=== PATIENT | female | born 1940 | race Caucasian/White ===

== ENCOUNTER 2018-08-02 10:57 | Observation (INO) ==
--- NOTE | 2018-08-02 11:37 | ED ---
HPI General Chief Complaint: Altered Mental Status Stated Complaint: AMS Time Seen by Provider: 08/02/18 11:26 Source: patient, family and EMS Mode of arrival: EMS Limitations: no limitations History of Present Illness HPI Narrative: 77-year-old female patient currently [facility] a [facility] presents to the ER today brought in by her family because she had lost her balance and fell hitting her head. It is unclear whether she had a loss of consciousness or not. She is currently complaining of left knee pain. She is a bit difficult to understand because she does not have her dentures in but her niece was able to understand her well and translates her answers to me. She denies any chest pains or abdominal pains. Modifying Factors: None Associated Signs & Symptoms: Loss of balance and fall, head injury, left knee injury Risk Factors: Elderly Related Data Home Medications Medication Instructions Recorded Confirmed albuterol sulfate [Ventolin HFA] 2 puff INHALATION Q4-6H PRN 08/02/18 08/02/18 alendronate 10 mg PO DAILY 08/02/18 08/02/18 budesonide-formoterol [Symbicort] 2 puff INHALATION BID 08/02/18 08/02/18 buspirone 10 mg PO BID 08/02/18 08/02/18 divalproex 250 mg PO BID 08/02/18 08/02/18 omeprazole 20 mg PO DAILY 08/02/18 08/02/18 pravastatin 40 mg PO DAILY 08/02/18 08/02/18 quetiapine 50 mg PO BID 08/02/18 08/02/18 Allergies Allergy/AdvReac Type Severity Reaction Status Date / Time No Known Allergies Allergy Verified 08/02/18 11:29 Review of Systems ROS: all other systems reviewed are negative [facility] Social History Social History Substance History: No History of Abuse Second Hand Smoke Exposure: No Smoking Status: Never smoker How Often Do You Have a Drink Containing Alcohol: Never Recent Travel in [facility] within the Last 8 Weeks: No Recent Out of Country Travel within the Last 8 Weeks: No Exam Narrative Exam Narrative: GENERAL: Pleasant well-developed elderly white female patient currently in mild distress. Awake and alert. SKIN: Focused skin assessment warm/dry. HEAD: Atraumatic. Normocephalic. EYES: Pupils equal and round. No scleral icterus. No injection or drainage. ENT: No nasal bleeding or discharge. Mucous membranes pink and moist. NECK: Trachea midline. No JVD. C-collar in place. CARDIOVASCULAR: Regular rate and rhythm. No murmur appreciated. RESPIRATORY: No accessory muscle use. Clear to auscultation. Breath sounds equal bilaterally. GASTROINTESTINAL: Abdomen soft, non-tender, nondistended. Hepatic and splenic margins not palpable. MUSCULOSKELETAL: No obvious deformities. No clubbing. No cyanosis. No edema. Pelvis is stable and nontender to palpation. There is mild tenderness palpation of the left knee. Nontender range of motion however. NEUROLOGICAL: Awake and alert. No obvious cranial nerve deficits. Motor grossly within normal limits. Normal speech. PSYCHIATRIC: Appropriate mood and affect; insight and judgment normal. Course Initial Documented Vital Signs Temperature 100 F H 08/02/18 11:28 Pulse Rate 116 H 08/02/18 11:28 Respiratory Rate 20 08/02/18 11:28 Blood Pressure 171/77 H 08/02/18 11:28 Pulse Oximetry 97 08/02/18 11:28 Last Documented Vital Signs Temperature 100 F H 08/02/18 11:28 Pulse Rate 113 H 08/02/18 11:29 Respiratory Rate 20 08/02/18 11:28 Blood Pressure 171/77 H 08/02/18 11:28 Pulse Oximetry 96 08/02/18 11:29 Medical Decision Making MDM Narrative Medical decision making narrative: EKG shows a sinus tachycardia. She has a low -grade fever of uncertain etiology. There is no significant elevation in white blood cell count. CAT scan of the brain did not show any signs of acute intracranial processes. Lab work did show a mild elevation of BUN and lactate, questionable secondary to dehydration. IV fluids were given in the ER. At this point, my plan would be to admit the patient for observation. Case is discussed with family practice resident service for admission. Medical Screen Exam Complete: Yes Emergency Medical Condition: Yes Differential Diagnosis Differential Diagnosis: Contusions versus fractures versus intracranial injuries Lab Data Lab results reviewed: Yes I reviewed the patient's lab results. Result diagrams: 08/02/18 11:35 08/02/18 11:35 Lab Results 08/02/18 08/02/18 08/02/18 Range/Units 11:35 11:35 11:35 WBC 7.8 (4.0-11.0) th/mm3 RBC 4.90 (4.00-5.30) mil/mm3 Hgb 12.2 (11.6-15.3) gm/dL Hct 36.9 (35.0-46.0) % MCV 75.3 L (80.0-100.0) fL MCH 24.9 L (27.0-34.0) pg MCHC 33.1 (32.0-36.0) % RDW 14.8 (11.6-17.2) % Plt Count 146 L (150-450) th/mm3 MPV 9.2 (7.0-11.0) fL Neut % (Auto) 80.6 H (16.0-70.0) % Lymph % (Auto) 9.3 (9.0-44.0) % [place] % (Auto) 9.0 H (0.0-8.0) % Eos % (Auto) 0.7 (0.0-4.0) % Baso % (Auto) 0.4 (0.0-2.0) % Neut # (Auto) 6.3 (1.8-7.7) th/mm3 Lymph # (Auto) 0.7 L (1.0-4.8) th/mm3 [place] # (Auto) 0.7 (0.0-0.9) th/mm3 Eos # (Auto) 0.1 (0.0-0.4) th/mm3 Baso # (Auto) 0.0 (0.0-0.2) th/mm3 WBC Differential . Differential Comment Auto diff final Sodium 142 (136-145) meq/L Potassium 4.2 (3.5-5.1) meq/L Chloride 106 (98-107) meq/L Carbon Dioxide 27.7 (21.0-32.0) meq/L Anion Gap 8 (5-15) meq/L BUN 27 H (7-18) mg/dL Creatinine 0.92 (0.50-1.00) mg/dL Estimated GFR 59 L (>89) mL/min POC Glucose (68-110) mg/dl Random Glucose 86 (74-106) mg/dL Lactic Acid 2.7 H (0.4-2.0) mmol/L Calcium 8.7 (8.5-10.1) mg/dL Magnesium 1.5 (1.5-2.5) mg/dL Total Bilirubin 0.6 (0.2-1.0) mg/dL AST 23 (15-37) U/L ALT 15 (10-53) U/L Alkaline Phosphatase 51 (45-117) U/L Total Protein 7.7 (6.4-8.2) g/dL Albumin 3.5 (3.4-5.0) g/dL Urine Color (Yellw/Straw) Urine Clarity (Clear) Urine pH (5.0-8.5) Ur Specific [place] (1.002-1.035) Urine Protein (Neg-Trace) mg/dL Urine Glucose (UA) (Negative) mg/dL Urine Ketones (Negative) mg/dL Urine Occult Blood (Negative) Urine Nitrate (Negative) Urine Bilirubin (Negative) Urine Urobilinogen (Less than 2) mg/dL Ur Leukocyte Esterase (Negative) Urine RBC (0-3) /hpf Urine WBC (0-5) /hpf Ur Squamous Epith Cells (0-5) /hpf Urine Mucus (Occasional) /lpf Micro UA Comment Ur Microscopic Review Urine Culture Comments 08/02/18 08/02/18 Range/Units 11:45 12:31 WBC (4.0-11.0) th/mm3 RBC (4.00-5.30) mil/mm3 Hgb (11.6-15.3) gm/dL Hct (35.0-46.0) % MCV (80.0-100.0) fL MCH (27.0-34.0) pg MCHC (32.0-36.0) % RDW (11.6-17.2) % Plt Count (150-450) th/mm3 MPV (7.0-11.0) fL Neut % (Auto) (16.0-70.0) % Lymph % (Auto) (9.0-44.0) % [place] % (Auto) (0.0-8.0) % Eos % (Auto) (0.0-4.0) % Baso % (Auto) (0.0-2.0) % Neut # (Auto) (1.8-7.7) th/mm3 Lymph # (Auto) (1.0-4.8) th/mm3 [place] # (Auto) (0.0-0.9) th/mm3 Eos # (Auto) (0.0-0.4) th/mm3 Baso # (Auto) (0.0-0.2) th/mm3 WBC Differential Differential Comment Sodium (136-145) meq/L Potassium (3.5-5.1) meq/L Chloride (98-107) meq/L Carbon Dioxide (21.0-32.0) meq/L Anion Gap (5-15) meq/L BUN (7-18) mg/dL Creatinine (0.50-1.00) mg/dL Estimated GFR (>89) mL/min POC Glucose 81 (68-110) mg/dl Random Glucose (74-106) mg/dL Lactic Acid (0.4-2.0) mmol/L Calcium (8.5-10.1) mg/dL Magnesium (1.5-2.5) mg/dL Total Bilirubin (0.2-1.0) mg/dL AST (15-37) U/L ALT (10-53) U/L Alkaline Phosphatase (45-117) U/L Total Protein (6.4-8.2) g/dL Albumin (3.4-5.0) g/dL Urine Color Straw (Yellw/Straw) Urine Clarity Clear (Clear) Urine pH 8.0 (5.0-8.5) Ur Specific [place] 1.009 (1.002-1.035) Urine Protein Negative (Neg-Trace) mg/dL Urine Glucose (UA) Negative (Negative) mg/dL Urine Ketones Negative (Negative) mg/dL Urine Occult Blood Small H (Negative) Urine Nitrate Negative (Negative) Urine Bilirubin Negative (Negative) Urine Urobilinogen Less than 2 (Less than 2) mg/dL Ur Leukocyte Esterase Negative (Negative) Urine RBC 1 (0-3) /hpf Urine WBC Less than 1 (0-5) /hpf Ur Squamous Epith Cells 1 (0-5) /hpf Urine Mucus Few H (Occasional) /lpf Micro UA Comment Culture not ind Ur Microscopic Review Not Reportable Urine Culture Comments Culture not ind Imaging Data Attestation: I personally reviewed and interpreted this imaging study as follows : Radiologist's impression: Cervical Spine CT 08/02/18 11:29 CONCLUSION: Prominent lordotic accentuation. Degenerative changes. No definite acute bony injury. Chest X-Ray 08/02/18 11:29 CONCLUSION: 1. Senescent changes with mild elevation of the right hemidiaphragm. 2. Otherwise, no acute abnormality. Head CT 08/02/18 11:29 CONCLUSION: Negative CT Head non contrast. . Hand X-Ray 08/02/18 11:37 CONCLUSION: No evidence of recent bony injury. Advanced arthropathy of the first carpometacarpal articulation. Knee X-Ray 08/02/18 11:37 CONCLUSION: No evidence of recent bony injury. Pelvis X-Ray 08/02/18 11:37 CONCLUSION: No evidence of acute bony injury. ECG Data Attestation: I personally reviewed and interpreted this ECG as follows: Interpretation: EKG shows sinus tachycardia at a rate of 115 bpm. No signs of acute ST elevations or depressions. Discharge Plan Discharge Disposition Patient Disposition: 30 Still Patient Discharge Condition Condition: Stable Discharge Details Anticipated Discharge Date: 08/02/18 Diagnosis: Altered mental status Physicians Team ED Provider: Renetta Brown Primary Care Provider: UNKNOWN, Attending Provider: Anthony Granger Status ED Status: Admitted Observation Patient
[2018-08-02 11:56] LABS: Baso % (Auto) 0.4 % (0.0-2.0); Eos # (Auto) 0.1 th/mm3 (0.0-0.4); Eos % (Auto) 0.7 % (0.0-4.0); Hematocrit 36.9 % (35.0-46.0); Hemoglobin 12.2 gm/dL (11.6-15.3); Lymph # (Auto) 0.7 th/mm3 (1.0-4.8); Lymph % (Auto) 9.3 % (9.0-44.0); Mean Corpuscular HGB Conc 33.1 % (32.0-36.0); Mean Corpuscular Hemoglobin 24.9 pg (27.0-34.0); Mean Corpuscular Volume 75.3 fL (80.0-100.0); Mean Platelet Volume 9.2 fL (7.0-11.0); Mono # (Auto) 0.7 th/mm3 (0.0-0.9); Neut # (Auto) 6.3 th/mm3 (1.8-7.7); Neut % (Auto) 80.6 % (16.0-70.0); Platelet Count 146 th/mm3 (150-450); Red Cell Distribution Width 14.8 % (11.6-17.2); White Blood Count 7.8 th/mm3 (4.0-11.0)
[2018-08-02 12:22] LABS: Albumin 3.5 g/dL (3.4-5.0); Anion Gap 8 meq/L (5-15); Blood Urea Nitrogen 27 mg/dL (7-18); Calcium 8.7 mg/dL (8.5-10.1); Carbon Dioxide 27.7 meq/L (21.0-32.0); Chloride 106 meq/L (98-107); Glomerular Filtration Rate 59 mL/min (>89); Glucose,Random 86 mg/dL (74-106); Magnesium 1.5 mg/dL (1.5-2.5); Potassium 4.2 meq/L (3.5-5.1); Sodium 142 meq/L (136-145)
[2018-08-02 12:23] LABS: Aspartate Aminotransferase 23 U/L (15-37)
[2018-08-02 12:27] LABS: Alanine Aminotransferase 15 U/L (10-53); Alkaline Phosphatase 51 U/L (45-117); Total Protein 7.7 g/dL (6.4-8.2)
--- NOTE | 2018-08-02 12:34 | XR ---
EXAM DATE: 08/02/2018 12:29 PM EST AGE/SEX: 77 years / Female INDICATIONS: Shortness of breath after fall. CLINICAL DATA: This is the patient's initial encounter. Patient reports that signs and symptoms have been present for 1 day and indicates a pain score of Nonresponsive. MEDICAL/SURGICAL HISTORY: Non-responsive. Non-responsive. COMPARISON: . FINDINGS: Diffuse interstitial prominence. Mild elevation the right hemidiaphragm. No significant focal parench ymal abnormality. Cardiomediastinal contours are within normal limits. Osseous structures appear qiana sly intact. CONCLUSION: 1. Senescent changes with mild elevation of the right hemidiaphragm. 2. Otherwise, no acute abnormality. Electronically signed by: Adeel Lundberg MD 08/02/2018 12:33 PM EST
--- NOTE | 2018-08-02 12:43 | XR ---
EXAM DATE: 08/02/2018 12:30 PM EST AGE/SEX: 77 years / Female INDICATIONS: Pain and bruising after fall. CLINICAL DATA: This is the patient's initial encounter. Patient reports that signs and symptoms have been present for 1 day and indicates a pain score of Nonresponsive. MEDICAL/SURGICAL HISTORY: Non-responsive. Non-responsive. COMPARISON: No prior exams available for comparison. FINDINGS: Bony structures are intact and in normal alignment. Osseous density is normal. Moderate to severe arthropathy is identified at the base of the first metacarpal at the carpometacarp al articulation. Soft tissues are unremarkable. No radiopaque foreign bodies seen. CONCLUSION: No evidence of recent bony injury. Advanced arthropathy of the first carpometacarpal articulation. Electronically signed by: Mushtaq Chambers MD 08/02/2018 12:41 PM EST
--- NOTE | 2018-08-02 12:44 | XR ---
EXAM DATE: 08/02/2018 12:28 PM EST AGE/SEX: 77 years / Female INDICATIONS: Pain after fall. CLINICAL DATA: This is the patient's initial encounter. Patient reports that signs and symptoms have been present for 1 day and indicates a pain score of Nonresponsive. MEDICAL/SURGICAL HISTORY: Non-responsive. Non-responsive. COMPARISON: No prior exams available for comparison. FINDINGS: Examination of the pelvis demonstrates no evidence of fracture or dislocation. Bony mineralization i s normal. There is no widening of the sacroiliac joints. No foreign body is identified. CONCLUSION: No evidence of acute bony injury. Electronically signed by: Mushtaq Chambers MD 08/02/2018 12:42 PM EST
--- NOTE | 2018-08-02 12:45 | XR ---
EXAM DATE: 08/02/2018 12:31 PM EST AGE/SEX: 77 years / Female INDICATIONS: Left knee pain after fall. CLINICAL DATA: This is the patient's initial encounter. Patient reports that signs and symptoms have been present for 1 day and indicates a pain score of Nonresponsive. MEDICAL/SURGICAL HISTORY: Non-responsive. Non-responsive. COMPARISON: No prior exams available for comparison. FINDINGS: Bony structures are intact and in normal alignment. Joints are intact without dislocation or signifi cant arthropathy. Osseous density is normal. Soft tissues are unremarkable. No radiopaque foreign bodies seen. CONCLUSION: No evidence of recent bony injury. Electronically signed by: Mushtaq Chambers MD 08/02/2018 12:43 PM EST
[2018-08-02 12:47] LABS: Bilirubin,Urine Negative (Negative); Clarity,Urine Clear (Clear); Color,Urine Straw (Yellw/Straw); Glucose,Urine (UA) Negative (Negative); Leukocyte Esterase,Urine Negative (Negative); Mucus,Urine Few /lpf (Occasional); Nitrite,Urine Negative (Negative); Specific Gravity,Urine 1.009 (1.002-1.035); Squamous Epithelial Cell,Urine 1 /hpf (0-5)
--- NOTE | 2018-08-02 13:08 | CT ---
EXAM DATE: 08/02/2018 1:05 PM EST AGE/SEX: 77 years / Female INDICATIONS: Fell hit head today, questionable loss of consciousness CLINICAL DATA: This is the patient's initial encounter. Patient reports that signs and symptoms have been present for 1 day and indicates a pain score of 0/10. MEDICAL/SURGICAL HISTORY: Gastroesophageal reflux disease. None. RADIATION DOSE: 66.34 CTDI (mGy) COMPARISON: No prior exams available for comparison. TECHNIQUE: CT of the head without contrast. Using automated exposure control and adjustment of the mA and/or kV according to patient size, radiation dose was kept as low as reasonably achievable to ob tain optimal diagnostic quality images. DICOM format image data is available electronically for revi ew and comparison. FINDINGS: Cerebrum: The ventricles are normal for age. No evidence of midline shift, mass lesion, hemorrhage or acute infarction. No extraaxial fluid collections are seen. Posterior Fossa: The cerebellum and brainstem are intact. The 4th ventricle is midline. The cerebe llopontine angle is unremarkable. Extracranial: The visualized portion of the orbits is intact. Skull: The calvaria is intact. No evidence of skull fracture. CONCLUSION: Negative CT Head non contrast. . Electronically signed by: Brayan Avila MD 08/02/2018 1:07 PM EST
--- NOTE | 2018-08-02 13:12 | CT ---
EXAM DATE: 08/02/2018 1:04 PM EST AGE/SEX: 77 years / Female INDICATIONS: Fall hit head today, questionable loss of consciousness CLINICAL DATA: This is the patient's initial encounter. Patient reports that signs and symptoms have been present for 1 day and indicates a pain score of 6/10. MEDICAL/SURGICAL HISTORY: Gastroesophageal reflux disease. None. RADIATION DOSE: 19.34 CTDI (mGy) COMPARISON: . TECHNIQUE: Contiguous axial images were obtained using helical multirow detector technique. The vol umetric data was post-processed with multiplanar reconstruction in oblique axial, sagittal, and coron al planes. Using automated exposure control and adjustment of the mA and/or kV according to patient s ize, radiation dose was kept as low as reasonably achievable to obtain optimal diagnostic quality cheng ges. DICOM format image data is available electronically for review and comparison. FINDINGS: Prominent lordotic accentuation and mild right convex scoliotic curvature. There is no evidence of ce rvical spine fracture. Degenerative changes are present throughout with disc space narrowing througho ut and small endplate osteophytes present. Mild arthritic changes in the posterior facet joints. Ther e is no evidence of paraspinal hematoma. CONCLUSION: Prominent lordotic accentuation. Degenerative changes. No definite acute bony injury. Electronically signed by: Brayan Avila MD 08/02/2018 1:11 PM EST
[2018-08-02] MEDS ORDERED: Sodium Chlor 0.9% Inj 500 ML IV.SIG SCH (14:00)
--- NOTE | 2018-08-02 14:09 | P.HPFP ---
History of Present Illness Primary Care Physician: UNKNOWN Chief Complaint: knee pain History of Present Illness: 77 year old female PMH asthma, GERD, bipolar who presents after a fall. Patient was home with family for holiday. Usually . Moaning in pain and family went to see what was wrong. She told family she fell into the wall and hit head. She states she blacked out. Patient was more disorientated and unbalanced than usual according to family members. She said at the time of the fall she had increased heart rate and chest pain. Later she fell off toilet. Family called EMS. Had no issue with balance before the falls. Currently her she only complains of L knee pain and some pain of left lower abdomen where she fell. According to family, patient mentally delayed at baseline and low pain tolerance. Since in the ED, family states she is back to baseline and no longer disoriented. Patient states she was recently started on a pain medication (no pain medication listed on the ones she brought). She states she takes her medications daily. No urinary or bowel incontinence. No seizures or history of seizures. Increased urination. No pain with urination and no foul ordor. Some congestion but no shortness of breath. Uses an inhaler daily. No numbness or tingling or weakness. Denies any changes in vision. Patient has had a normal appetite eating and drinking well. PMH: asthma (albuterol PRN and Symbicort BID) Gerd (omeprazole 20 mg) bipolar (buspirone 10 BID, quetiapine 50 BID, divalproex 250 BID) Meds: also alendronate 10mg and pravastatin 40mg SH: L shoulder FH: mom defibrillator and pacemaker, brothers MIs Allergies: none social: never smoker, no alcohol, no drug use. Lives in [facility] in [place] for 11 years. At home does not require a walker or cane to ambulate. - Diagnosis (1) Syncope (2) Left knee pain (3) Left wrist pain (4) Bipolar 1 disorder (5) Asthma (6) GERD (gastroesophageal reflux disease) (7) Nutrition, metabolism, and development symptoms Review of Systems Constitutional: Denies chills, Denies fever(s) Eyes: Denies change in vision Ears, Nose, Mouth, and Throat: Denies dizziness, Denies headache(s) Cardiovascular: Reports chest pain, Reports rapid, pounding, or irregular heartbeat Respiratory: Denies shortness of breath, Denies wheezing Gastrointestinal: Denies nausea, Denies vomiting Genitourinary: Reports urinary urgency, Denies painful urination Musculoskeletal: Denies back pain Comments: left knee pain Skin/Breast: Denies sores Neurologic: Denies headache(s), Denies memory loss, Denies tingling/numbness/ burning sensations, Denies weakness Psychiatric: Denies memory loss Endocrine: Denies excessive sweating, Denies increased thirst Hematologic/Lymphatic: Denies easy bleeding Allergic/Immunologic: Denies hives PMFSH - History History Provided By: Patient - Medical History Medical History: Medical History (Last Reviewed 08/02/18 @ 12:25 by Hyun Michael) Bipolar 1 disorder GERD (gastroesophageal reflux disease) Surgical history unknown - Tobacco History Second Hand Smoke Exposure: No Smoking Status: Never smoker - Alcohol History How Often Do You Have a Drink Containing Alcohol: Never - Substance Use History Substance History: No History of Abuse - Travel History Recent Travel in the [place] Within the Last 8 Weeks: No Recent Travel Out of the Country Within the Last 8 Weeks: No - Immunization History Tetanus Immunization: >5 Years Medications and Allergies Active Medications: Active Medications Sodium Chloride (Ns Inj) 500 mls @ 1,000 mls/hr IV.SIG BOLUS CLARA Stop: 08/02/18 14:29 Allergies Allergy/AdvReac Type Severity Reaction Status Date / Time No Known Allergies Allergy Verified 08/02/18 11:29 Home Medications Medication Instructions Recorded Confirmed Type albuterol sulfate [Ventolin HFA] 2 puff INHALATION Q4-6H PRN 08/02/18 08/02/18 History alendronate 10 mg PO DAILY 08/02/18 08/02/18 History budesonide-formoterol [Symbicort] 2 puff INHALATION BID 08/02/18 08/02/18 History buspirone 10 mg PO BID 08/02/18 08/02/18 History divalproex 250 mg PO BID 08/02/18 08/02/18 History omeprazole 20 mg PO DAILY 08/02/18 08/02/18 History pravastatin 40 mg PO DAILY 08/02/18 08/02/18 History quetiapine 50 mg PO BID 08/02/18 08/02/18 History Exam Vital signs: Vital Signs 08/02/18 11:28 08/02/18 11:29 Temperature 100 F H Pulse Rate 116 H 113 H Respiratory Rate 20 Blood Pressure 171/77 H Pulse Oximetry 97 96 Intake & Output 08/01/18 08/02/18 08/02/18 18:59 06:59 18:59 Output Total 400 / 400 Balance -400 / -400 Weight 200 kg Output: Urine 400 / 400 Other: # Voids 1 Narrative: GENERAL: SKIN: Warm and dry. HEAD: Atraumatic. Normocephalic. EYES: Pupils equal and round. No scleral icterus. No injection or drainage. ENT: No nasal bleeding or discharge. Mucous membranes pink and moist. NECK: Trachea midline. No JVD. CARDIOVASCULAR: Regular rate and rhythm. RESPIRATORY: No accessory muscle use. Clear to auscultation. Breath sounds equal bilaterally. GASTROINTESTINAL: Abdomen soft, nondistended. Mild tenderness to palpation of LLQ. Hepatic and splenic margins not palpable. MUSCULOSKELETAL: Extremities without clubbing, cyanosis, or edema. No obvious deformities. Some mild left knee swelling of medial joint line. Bruising of L wrist. Tenderness to palpation of left knee and decreased ROM; No tenderness of spine. No CVA tenderness NEUROLOGICAL: Awake and alert. No obvious cranial nerve deficits. Motor grossly within normal limits. Five out of 5 muscle strength in the arms and legs. Normal speech. PSYCHIATRIC: Appropriate mood and affect; insight and judgment normal. Results - Labs Result diagrams: 08/02/18 11:35 08/02/18 11:35 Abnormal lab results 08/02/18 08/02/18 08/02/18 Range/Units 11:35 11:35 11:35 MCV 75.3 L (80.0-100.0) fL MCH 24.9 L (27.0-34.0) pg Plt Count 146 L (150-450) th/mm3 Neut % (Auto) 80.6 H (16.0-70.0) % [place] % (Auto) 9.0 H (0.0-8.0) % Lymph # (Auto) 0.7 L (1.0-4.8) th/mm3 BUN 27 H (7-18) mg/dL Estimated GFR 59 L (>89) mL/min Lactic Acid 2.7 H (0.4-2.0) mmol/L Urine Occult Blood (Negative) Urine Mucus (Occasional) /lpf 08/02/18 Range/Units 12:31 MCV (80.0-100.0) fL MCH (27.0-34.0) pg Plt Count (150-450) th/mm3 Neut % (Auto) (16.0-70.0) % [place] % (Auto) (0.0-8.0) % Lymph # (Auto) (1.0-4.8) th/mm3 BUN (7-18) mg/dL Estimated GFR (>89) mL/min Lactic Acid (0.4-2.0) mmol/L Urine Occult Blood Small H (Negative) Urine Mucus Few H (Occasional) /lpf Short CBC 08/02/18 Range/Units 11:35 WBC 7.8 (4.0-11.0) th/mm3 Hgb 12.2 (11.6-15.3) gm/dL Hct 36.9 (35.0-46.0) % Plt Count 146 L (150-450) th/mm3 BMP 08/02/18 11:35 Sodium 142 Potassium 4.2 Chloride 106 Carbon Dioxide 27.7 BUN 27 H Creatinine 0.92 Calcium 8.7 Liver Function 08/02/18 Range/Units 11:35 Total Bilirubin 0.6 (0.2-1.0) mg/dL AST 23 (15-37) U/L ALT 15 (10-53) U/L Alkaline Phosphatase 51 (45-117) U/L Albumin 3.5 (3.4-5.0) g/dL Urine 08/02/18 Range/Units 12:31 Urine Color Straw (Yellw/Straw) Urine Clarity Clear (Clear) Urine pH 8.0 (5.0-8.5) Ur Specific [place] 1.009 (1.002-1.035) Urine Protein Negative (Neg-Trace) mg/dL Urine Glucose (UA) Negative (Negative) mg/dL - Imaging Impressions Cervical Spine CT 08/02/18 11:29 CONCLUSION: Prominent lordotic accentuation. Degenerative changes. No definite acute bony injury. Chest X-Ray 08/02/18 11:29 CONCLUSION: 1. Senescent changes with mild elevation of the right hemidiaphragm. 2. Otherwise, no acute abnormality. Head CT 08/02/18 11:29 CONCLUSION: Negative CT Head non contrast. . Hand X-Ray 08/02/18 11:37 CONCLUSION: No evidence of recent bony injury. Advanced arthropathy of the first carpometacarpal articulation. Knee X-Ray 08/02/18 11:37 CONCLUSION: No evidence of recent bony injury. Pelvis X-Ray 08/02/18 11:37 CONCLUSION: No evidence of acute bony injury. Caprini VTE Risk Assessment Caprini Risk Assessment Model: Point Value = 1 Point Value = 2 Point Value = 3 Point Value = 5 Age 41-60 Minor surgery BMI > 25 kg/m2 Swollen legs Varicose veins or History of unexplained or recurrent spontaneous Oral contraceptives or hormone replacement Sepsis (< 1 month) Serious lung disease, including pneumonia (< 1 month) Abnormal pulmonary function Acute myocardial infarction Congestive heart failure (< 1 month) History of inflammatory bowel disease Medical patient at bed rest Age 61-74 Arthroscopic surgery Major open surgery (> 45 min) Laparoscopic surgery (> 45 min) Malignancy Confined to bed (> 72 hours) Immobilizing plaster cast Central venous access Age >= 75 History of VTE Family history of VTE Factor V Leiden Prothrombin [id number] Lupus anticoagulant Anticardiolipin antibodies Elevated serum homocysteine Heparin-induced thrombocytopenia Other congenital or acquired thrombophilia Stroke (< 1 month) Elective arthroplasty Hip, pelvis, or leg fracture Acute spinal cord injury (< 1 month) Prophylaxis Regimen: Total Risk Factor Score Risk Level Prophylaxis Regimen 0-1 Low Early ambulation 2 Moderate Order ONE of the following: *Sequential Compression Device (SCD) *Heparin 5000 units SQ BID 3-4 Higher Order ONE of the following medications: *Heparin 5000 units SQ TID *Enoxaparin/Lovenox 40 mg SQ daily (WT < 150 kg, CrCl > 30 mL/min) *Enoxaparin/Lovenox 30 mg SQ daily (WT < 150 kg, CrCl > 10-29 mL/min) *Enoxaparin/Lovenox 30 mg SQ BID (WT < 150 kg, CrCl > 30 mL/min) AND/OR *Sequential Compression Device (SCD) 5 or more Highest Order ONE of the following medications: *Heparin 5000 units SQ TID (Preferred with Epidurals) *Enoxaparin/Lovenox 40 mg SQ daily (WT < 150 kg, CrCl > 30 mL/min) *Enoxaparin/Lovenox 30 mg SQ daily (WT < 150 kg, CrCl > 10-29 mL/min) *Enoxaparin/Lovenox 30 mg SQ BID (WT < 150 kg, CrCl > 30 mL/min) AND *Sequential Compression Device (SCD) Assessment and Plan - Assessment (1) Syncope Code(s): R55 - Syncope and collapse Status: Acute Plan: 77-year-old female past medical history of asthma, bipolar, GERD presents the ED after a fall. According to family members she was more disoriented and on balance before falling. Patient stated she hit her head and lost consciousness. She remembers having chest pain and palpitations. Later patient also fell off of the toilet. Transported by EMS. On arrival to the ED temperature was 100 degrees, heart rate 116, blood pressure 171/77. WBC within normal limits. Lactic acid elevated at 2.7 and BUN elevated at 27. Glucose 80. DDX A. fib, thyroid, hypoglycemia, metabolic, UTI, poor balance. UA was normal. CT head was negative for any abnormalities. Cervical spine CT showed degenerative changes. X-rays of left hand, left knee, and pelvis showed no evidence of fracture. Patient was given 500 cc bolus in the ED Admit for observation Blood cultures pending Trend lactic acid -TSH Bladder scan (possible vasovagal cause with strain) -Carotid doppler -Echo 2D Normal saline 100 mL/h -PT and OT (2) Left knee pain Code(s): M25.562 - Pain in left knee Status: Acute Plan: X-ray: no evidence of bony injury -Pain: Tylenol 650 every 4 as needed (3) Left wrist pain Code(s): M25.532 - Pain in left wrist Status: Acute (4) Bipolar 1 disorder Code(s): F31.9 - Bipolar disorder, unspecified Status: Acute Plan: Continue on home meds -buspirone 10 BID, quetiapine 50 BID, divalproex 250 BID) (5) Asthma Code(s): J45.909 - Unspecified asthma, uncomplicated Status: Acute Plan: Continue on home meds -albuterol PRN and Symbicort BID (6) GERD (gastroesophageal reflux disease) Code(s): K21.9 - Gastro-esophageal reflux disease without esophagitis Status: Acute Plan: Continue on home meds -omeprazole 20 mg (7) Nutrition, metabolism, and development symptoms Code(s): R63.8 - Other symptoms and signs concerning food and fluid intake Status: Acute Plan: Diet: Regular Fluids: 100 normal saline per hour Electrolytes: Monitor and replete DVT prophylaxis: SCDs
[2018-08-02] MEDS ORDERED: Acetaminophen 325 MG Tablet PO PRN (14:25)
[2018-08-02] MEDS ORDERED: Bisacodyl 10 MG Supp RECTAL PRN (14:25)
[2018-08-02] MEDS: Sod Chloride 0.9% Inj 1,000 ML IV.CONT SCH (14:57)
--- NOTE | 2018-08-02 15:47 | P.HPFP ---
History of Present Illness Primary Care Physician: UNKNOWN <Anthony Granger R - 08/03/18 13:54> UNKNOWN <Maria Del Rosario Wilson C - 08/02/18 15:47> Chief Complaint: knee pain <Maria Del Rosario Wilson C - 08/02/18 15:47> History of Present Illness: 77 year old female PMH asthma, GERD, bipolar who presents after a fall. Patient was home with family for holiday. Usually . Moaning in pain and family went to see what was wrong. She told family she fell into the wall and hit head. She states she blacked out. Patient was more disorientated and unbalanced than usual according to family members. She said at the time of the fall she had increased heart rate and chest pain. Later she fell off toilet. Family called EMS. Had no issue with balance before the falls. Currently her she only complains of L knee pain and some pain of left lower abdomen where she fell. According to family, patient mentally delayed at baseline and low pain tolerance. Since in the ED, family states she is back to baseline and no longer disoriented. Patient states she was recently started on a pain medication (no pain medication listed on the ones she brought). She states she takes her medications daily. No urinary or bowel incontinence. No seizures or history of seizures. Increased urination. No pain with urination and no foul ordor. Some congestion but no shortness of breath. Uses an inhaler daily. No numbness or tingling or weakness. Denies any changes in vision. Patient has had a normal appetite eating and drinking well. PMH: asthma (albuterol PRN and Symbicort BID) Gerd (omeprazole 20 mg) bipolar (buspirone 10 BID, quetiapine 50 BID, divalproex 250 BID) Meds: also alendronate 10mg and pravastatin 40mg SH: L shoulder FH: mom defibrillator and pacemaker, brothers MIs Allergies: none social: never smoker, no alcohol, no drug use. Lives in [facility] in [place] for 11 years. At home does not require a walker or cane to ambulate. <Jensen Wilsonle C - 08/02/18 15:47> - Diagnosis (1) Syncope (2) Left knee pain (3) Left wrist pain (4) Bipolar 1 disorder (5) Asthma (6) GERD (gastroesophageal reflux disease) (7) Nutrition, metabolism, and development symptoms <TeddyAnthony gonzalez Hai Anival 08/03/18 13:54> (1) Syncope (2) Left knee pain (3) Left wrist pain (4) Bipolar 1 disorder (5) Asthma (6) GERD (gastroesophageal reflux disease) (7) Nutrition, metabolism, and development symptoms <Maria Del Rosario Wilson 08/02/18 15:45> PENDING SALE TO [facility] - History History Provided By: Patient <Maria Del Rosario Wilson 08/02/18 15:47> - Medical History Medical History: Medical History (Last Reviewed 08/02/18 @ 12:25 by Hyun Michael) Bipolar 1 disorder GERD (gastroesophageal reflux disease) Surgical history unknown <Anthony Granger Hai Anival 08/03/18 13:54> Medical History (Last Reviewed 08/02/18 @ 12:25 by Hyun Michael) Bipolar 1 disorder GERD (gastroesophageal reflux disease) Surgical history unknown <Maria Del Rosario Wilson 08/02/18 15:47> - Tobacco History Second Hand Smoke Exposure: No <Maria Del Rosario Wilson 08/02/18 15:47> Smoking Status: Never smoker <Maria Del Rosario Wilson 08/02/18 15:47> - Alcohol History How Often Do You Have a Drink Containing Alcohol: Never <Maria Del Rosario Wilson 15:47> - Substance Use History Substance History: No History of Abuse <Maria Del Rosario Wilson 08/02/18 15:47> - Travel History Recent Travel in the [facility] Within the Last 8 Weeks: No <Maria Del Rosario Wilson 15:47> Recent Travel Out of the Country Within the Last 8 Weeks: No <Maria Del Rosario Wilson 08/02/18 15:47> - Immunization History Tetanus Immunization: >5 Years <Maria Del Rosario Wilson 08/02/18 15:47> Medications and Allergies Allergies Allergy/AdvReac Type Severity Reaction Status Date / Time No Known Allergies Allergy Verified 08/02/18 11:29 <Anthony Granger 08/03/18 13:54> Home Medications Medication Instructions Recorded Confirmed Type albuterol sulfate [Ventolin HFA] 2 puff INHALATION Q4-6H PRN 08/02/18 08/02/18 History alendronate 10 mg PO DAILY 08/02/18 08/02/18 History budesonide-formoterol [Symbicort] 2 puff INHALATION BID 08/02/18 08/02/18 History buspirone 10 mg PO BID 08/02/18 08/02/18 History divalproex 250 mg PO BID 08/02/18 08/02/18 History omeprazole 20 mg PO DAILY 08/02/18 08/02/18 History pravastatin 40 mg PO DAILY 08/02/18 08/02/18 History quetiapine 50 mg PO BID 08/02/18 08/02/18 History <Oslos,Anthony R - 08/03/18 13:54> Active Medications: Active Medications Acetaminophen (Tylenol) 650 mg PO Q4H PRN PRN Reason: Temp > 100.4 Al Hydroxide/Mg Hydroxide (Milk Of Magnesia Liq) 30 ml PO Q12H PRN PRN Reason: Mild Constipation Bisacodyl (Dulcolax Supp) 10 mg RECTAL DAILY PRN PRN Reason: SEVERE CONSITIPATION Sodium Chloride (Ns Inj) 1,000 mls @ 100 mls/hr IV.CONT .Q10H [facility] Last Admin: 08/03/18 12:14 Dose: 100 mls/hr Lactulose (Lactulose Liq) 30 ml PO DAILY PRN PRN Reason: SEVERE CONSITIPATION Methylprednisolone (Medrol) 20 mg PO ONCE ONE Stop: 08/04/18 09:01 Ondansetron HCl (Zofran Inj) 4 mg IV.PUSH Q6H PRN PRN Reason: NAUSEA OR VOMITING Senna/Docusate Sodium (Taniya-Colace) 1 tab PO BID [facility] Last Admin: 08/03/18 09:03 Dose: 1 tab Sennosides (Senokot) 17.2 mg PO Q12H PRN PRN Reason: Moderate Constipation Tramadol HCl (Ultram) 50 mg PO Q6H PRN PRN Reason: PAIN 1-10 Last Admin: 08/03/18 11:21 Dose: 50 mg <Oslos,Anthony R - 08/03/18 13:54> Active Medications Acetaminophen (Tylenol) 650 mg PO Q4H PRN PRN Reason: Temp > 100.4 Al Hydroxide/Mg Hydroxide (Milk Of Magnesia Liq) 30 ml PO Q12H PRN PRN Reason: Mild Constipation Bisacodyl (Dulcolax Supp) 10 mg RECTAL DAILY PRN PRN Reason: SEVERE CONSITIPATION Sodium Chloride (Ns Inj) 1,000 mls @ 100 mls/hr IV.CONT .Q10H [facility] Last Admin: 08/02/18 14:57 Dose: 100 mls/hr Acetaminophen (Ofirmev Inj) 1,000 mg in 100 mls @ 400 mls/hr IV.SIG Q6H [facility] Stop: 08/03/18 09:14 Last Admin: 08/02/18 14:58 Dose: 400 mls/hr Lactulose (Lactulose Liq) 30 ml PO DAILY PRN PRN Reason: SEVERE CONSITIPATION Ondansetron HCl (Zofran Inj) 4 mg IV.PUSH Q6H PRN PRN Reason: NAUSEA OR VOMITING Senna/Docusate Sodium (Taniya-Colace) 1 tab PO BID [facility] Sennosides (Senokot) 17.2 mg PO Q12H PRN PRN Reason: Moderate Constipation <Maria Del Rosario Wilson C - 08/02/18 15:47> Exam Vital signs: Vital Signs 08/02/18 15:20 08/02/18 16:54 08/02/18 20:00 Temperature 97.9 F 98.0 F Pulse Rate 103 H 97 H 95 H Respiratory Rate 17 16 18 Blood Pressure 117/68 117/68 118/61 Pulse Oximetry 97 97 96 08/02/18 20:32 08/03/18 00:00 08/03/18 04:00 Temperature 98.0 F 97.9 F Pulse Rate 90 81 Respiratory Rate 18 16 16 Blood Pressure 111/59 L 115/61 Pulse Oximetry 88 L 887 H 08/03/18 08:00 08/03/18 12:00 Temperature 98.8 F 98.7 F Pulse Rate 86 89 Respiratory Rate 16 16 Blood Pressure 133/64 134/76 Pulse Oximetry 93 L 93 L Intake & Output 08/02/18 08/03/18 08/03/18 18:59 06:59 18:59 Intake Total 600 / 600 3060 / 3060 1100 / 1100 Output Total 900 / 900 460 / 460 Balance -300 / -300 2600 / 2600 1100 / 1100 Weight 90.718 kg Intake: IV 600 / 600 1200 / 1200 1100 / 1100 NS Inj 1,000 ML @ 100 mls/hr IV 1000 / 1000 1000 / 1000 .CONT .Q10H [facility] Rx#:[id number] Ofirmev Inj 1,000 mg In 100 ml 100 / 100 200 / 200 100 / 100 @ 400 mls/hr IV.SIG Q6H [facility] Rx# :[id number] NS Inj 500 ML @ 1000 mls/hr IV. 500 / 500 SIG BOLUS [facility] Rx#:[id number] Oral 360 / 360 Other 1500 / 1500 Output: Urine 900 / 900 460 / 460 Other: Other Intake Source Saline Solution # Voids 1 2 Date of Last Bowel Movement 08/01/18 Weight On Admission 90.718 kg <Anthony Granger R - 08/03/18 13:54> Vital Signs 08/02/18 11:28 08/02/18 11:29 Temperature 100 F H Pulse Rate 116 H 113 H Respiratory Rate 20 Blood Pressure 171/77 H Pulse Oximetry 97 96 Intake & Output 08/01/18 08/02/18 08/02/18 18:59 06:59 18:59 Output Total 400 / 400 Balance -400 / -400 Weight 200 kg Output: Urine 400 / 400 Other: # Voids 1 <Maria Del Rosario Wilson C - 08/02/18 15:47> Results - Labs Result diagrams: 08/03/18 06:45 08/03/18 06:45 <Anthony Granger R - 08/03/18 13:54> Abnormal lab results 08/02/18 08/02/18 08/03/18 Range/Units 11:35 14:50 06:45 Hgb 10.8 L (11.6-15.3) gm/dL Hct 33.4 L (35.0-46.0) % MCV 76.8 L (80.0-100.0) fL MCH 24.9 L (27.0-34.0) pg Plt Count 146 L (150-450) th/mm3 [place] % (Auto) 15.7 H (0.0-8.0) % Eos % (Auto) 4.7 H (0.0-4.0) % Chloride (98-107) meq/L BUN (7-18) mg/dL Estimated GFR (>89) mL/min Lactic Acid 2.8 H (0.4-2.0) mmol/L Calcium (8.5-10.1) mg/dL TSH 4.110 H (0.358-3.740) uIU/mL 08/03/18 Range/Units 06:45 Hgb (11.6-15.3) gm/dL Hct (35.0-46.0) % MCV (80.0-100.0) fL MCH (27.0-34.0) pg Plt Count (150-450) th/mm3 [place] % (Auto) (0.0-8.0) % Eos % (Auto) (0.0-4.0) % Chloride 111 H (98-107) meq/L BUN 21 H (7-18) mg/dL Estimated GFR 86 L (>89) mL/min Lactic Acid (0.4-2.0) mmol/L Calcium 7.8 L D (8.5-10.1) mg/dL TSH (0.358-3.740) uIU/mL Short CBC 08/03/18 Range/Units 06:45 WBC 4.7 (4.0-11.0) th/mm3 Hgb 10.8 L (11.6-15.3) gm/dL Hct 33.4 L (35.0-46.0) % Plt Count 146 L (150-450) th/mm3 [facility] 08/03/18 06:45 Sodium 141 Potassium 3.7 Chloride 111 H Carbon Dioxide 23.0 BUN 21 H Creatinine 0.66 Calcium 7.8 L D <Anthony Granger R - 08/03/18 13:54> Abnormal lab results 08/02/18 08/02/18 08/02/18 Range/Units 11:35 11:35 11:35 MCV 75.3 L (80.0-100.0) fL MCH 24.9 L (27.0-34.0) pg Plt Count 146 L (150-450) th/mm3 Neut % (Auto) 80.6 H (16.0-70.0) % [place] % (Auto) 9.0 H (0.0-8.0) % Lymph # (Auto) 0.7 L (1.0-4.8) th/mm3 BUN 27 H (7-18) mg/dL Estimated GFR 59 L (>89) mL/min Lactic Acid 2.7 H (0.4-2.0) mmol/L Urine Occult Blood (Negative) Urine Mucus (Occasional) /lpf 08/02/18 Range/Units 12:31 MCV (80.0-100.0) fL MCH (27.0-34.0) pg Plt Count (150-450) th/mm3 Neut % (Auto) (16.0-70.0) % [place] % (Auto) (0.0-8.0) % Lymph # (Auto) (1.0-4.8) th/mm3 BUN (7-18) mg/dL Estimated GFR (>89) mL/min Lactic Acid (0.4-2.0) mmol/L Urine Occult Blood Small H (Negative) Urine Mucus Few H (Occasional) /lpf Short CBC 08/02/18 Range/Units 11:35 WBC 7.8 (4.0-11.0) th/mm3 Hgb 12.2 (11.6-15.3) gm/dL Hct 36.9 (35.0-46.0) % Plt Count 146 L (150-450) th/mm3 BMP 08/02/18 11:35 Sodium 142 Potassium 4.2 Chloride 106 Carbon Dioxide 27.7 BUN 27 H Creatinine 0.92 Calcium 8.7 Liver Function 08/02/18 Range/Units 11:35 Total Bilirubin 0.6 (0.2-1.0) mg/dL AST 23 (15-37) U/L ALT 15 (10-53) U/L Alkaline Phosphatase 51 (45-117) U/L Albumin 3.5 (3.4-5.0) g/dL Urine 08/02/18 Range/Units 12:31 Urine Color Straw (Yellw/Straw) Urine Clarity Clear (Clear) Urine pH 8.0 (5.0-8.5) Ur Specific [place] 1.009 (1.002-1.035) Urine Protein Negative (Neg-Trace) mg/dL Urine Glucose (UA) Negative (Negative) mg/dL <Maria Del Rosario Wilson - 08/02/18 15:47> - Imaging Impressions Carotid Doppler Study 08/03/18 00:00 CONCLUSION: Negative carotid ultrasound examination. <Anthony Granger - 08/03/18 13:54> Impressions Cervical Spine CT 08/02/18 11:29 CONCLUSION: Prominent lordotic accentuation. Degenerative changes. No definite acute bony injury. Chest X-Ray 08/02/18 11:29 CONCLUSION: 1. Senescent changes with mild elevation of the right hemidiaphragm. 2. Otherwise, no acute abnormality. Head CT 08/02/18 11:29 CONCLUSION: Negative CT Head non contrast. . Hand X-Ray 08/02/18 11:37 CONCLUSION: No evidence of recent bony injury. Advanced arthropathy of the first carpometacarpal articulation. Knee X-Ray 08/02/18 11:37 CONCLUSION: No evidence of recent bony injury. Pelvis X-Ray 08/02/18 11:37 CONCLUSION: No evidence of acute bony injury. <Maria Del Rosario Wilson - 08/02/18 15:47> Caprini VTE Risk Assessment Caprini VTE Risk Assessment: Moderate/High Risk (score >= 2) <Maria Del Rosario Wilson - 08/02/18 15:47> Caprini Risk Assessment Model: Point Value = 1 Point Value = 2 Point Value = 3 Point Value = 5 Age 41-60 Minor surgery BMI > 25 kg/m2 Swollen legs Varicose veins or History of unexplained or recurrent spontaneous Oral contraceptives or hormone replacement Sepsis (< 1 month) Serious lung disease, including pneumonia (< 1 month) Abnormal pulmonary function Acute myocardial infarction Congestive heart failure (< 1 month) History of inflammatory bowel disease Medical patient at bed rest Age 61-74 Arthroscopic surgery Major open surgery (> 45 min) Laparoscopic surgery (> 45 min) Malignancy Confined to bed (> 72 hours) Immobilizing plaster cast Central venous access Age >= 75 History of VTE Family history of VTE Factor V Leiden Prothrombin [id number] Lupus anticoagulant Anticardiolipin antibodies Elevated serum homocysteine Heparin-induced thrombocytopenia Other congenital or acquired thrombophilia Stroke (< 1 month) Elective arthroplasty Hip, pelvis, or leg fracture Acute spinal cord injury (< 1 month) <Anthony Granger R - 08/03/18 13:54> Point Value = 1 Point Value = 2 Point Value = 3 Point Value = 5 Age 41-60 Minor surgery BMI > 25 kg/m2 Swollen legs Varicose veins or History of unexplained or recurrent spontaneous Oral contraceptives or hormone replacement Sepsis (< 1 month) Serious lung disease, including pneumonia (< 1 month) Abnormal pulmonary function Acute myocardial infarction Congestive heart failure (< 1 month) History of inflammatory bowel disease Medical patient at bed rest Age 61-74 Arthroscopic surgery Major open surgery (> 45 min) Laparoscopic surgery (> 45 min) Malignancy Confined to bed (> 72 hours) Immobilizing plaster cast Central venous access Age >= 75 History of VTE Family history of VTE Factor V Leiden Prothrombin [id number] Lupus anticoagulant Anticardiolipin antibodies Elevated serum homocysteine Heparin-induced thrombocytopenia Other congenital or acquired thrombophilia Stroke (< 1 month) Elective arthroplasty Hip, pelvis, or leg fracture Acute spinal cord injury (< 1 month) <Maria Del Rosario Wilson C - 08/02/18 15:47> Prophylaxis Regimen: Total Risk Factor Score Risk Level Prophylaxis Regimen 0-1 Low Early ambulation 2 Moderate Order ONE of the following: *Sequential Compression Device (SCD) *Heparin 5000 units SQ BID 3-4 Higher Order ONE of the following medications: *Heparin 5000 units SQ TID *Enoxaparin/Lovenox 40 mg SQ daily (WT < 150 kg, CrCl > 30 mL/min) *Enoxaparin/Lovenox 30 mg SQ daily (WT < 150 kg, CrCl > 10-29 mL/min) *Enoxaparin/Lovenox 30 mg SQ BID (WT < 150 kg, CrCl > 30 mL/min) AND/OR *Sequential Compression Device (SCD) 5 or more Highest Order ONE of the following medications: *Heparin 5000 units SQ TID (Preferred with Epidurals) *Enoxaparin/Lovenox 40 mg SQ daily (WT < 150 kg, CrCl > 30 mL/min) *Enoxaparin/Lovenox 30 mg SQ daily (WT < 150 kg, CrCl > 10-29 mL/min) *Enoxaparin/Lovenox 30 mg SQ BID (WT < 150 kg, CrCl > 30 mL/min) AND *Sequential Compression Device (SCD) <Anthony Granger R - 08/03/18 13:54> Total Risk Factor Score Risk Level Prophylaxis Regimen 0-1 Low Early ambulation 2 Moderate Order ONE of the following: *Sequential Compression Device (SCD) *Heparin 5000 units SQ BID 3-4 Higher Order ONE of the following medications: *Heparin 5000 units SQ TID *Enoxaparin/Lovenox 40 mg SQ daily (WT < 150 kg, CrCl > 30 mL/min) *Enoxaparin/Lovenox 30 mg SQ daily (WT < 150 kg, CrCl > 10-29 mL/min) *Enoxaparin/Lovenox 30 mg SQ BID (WT < 150 kg, CrCl > 30 mL/min) AND/OR *Sequential Compression Device (SCD) 5 or more Highest Order ONE of the following medications: *Heparin 5000 units SQ TID (Preferred with Epidurals) *Enoxaparin/Lovenox 40 mg SQ daily (WT < 150 kg, CrCl > 30 mL/min) *Enoxaparin/Lovenox 30 mg SQ daily (WT < 150 kg, CrCl > 10-29 mL/min) *Enoxaparin/Lovenox 30 mg SQ BID (WT < 150 kg, CrCl > 30 mL/min) AND *Sequential Compression Device (SCD) <Maria Del Rosario Wilson C - 08/02/18 15:47> Assessment and Plan - Assessment (1) Syncope Code(s): R55 - Syncope and collapse Status: Acute (2) Left knee pain Code(s): M25.562 - Pain in left knee Status: Acute (3) Left wrist pain Code(s): M25.532 - Pain in left wrist Status: Acute (4) Bipolar 1 disorder Code(s): F31.9 - Bipolar disorder, unspecified Status: Acute (5) Asthma Code(s): J45.909 - Unspecified asthma, uncomplicated Status: Acute (6) GERD (gastroesophageal reflux disease) Code(s): K21.9 - Gastro-esophageal reflux disease without esophagitis Status: Acute (7) Nutrition, metabolism, and development symptoms Code(s): R63.8 - Other symptoms and signs concerning food and fluid intake Status: Acute <Anthony Granger R - 08/03/18 13:54> (1) Syncope Code(s): R55 - Syncope and collapse Status: Acute Plan: 77-year-old female past medical history of asthma, bipolar, GERD presents the ED after a fall. According to family members she was more disoriented and on balance before falling. Patient stated she hit her head and lost consciousness. She remembers having chest pain and palpitations. Later patient also fell off of the toilet. Transported by EMS. On arrival to the ED temperature was 100 degrees, heart rate 116, blood pressure 171/77. WBC within normal limits. Lactic acid elevated at 2.7 and BUN elevated at 27. Glucose 80. DDX A. fib, thyroid, hypoglycemia, metabolic, UTI, poor balance. UA was normal. CT head was negative for any abnormalities. Cervical spine CT showed degenerative changes. X-rays of left hand, left knee, and pelvis showed no evidence of fracture. Chest x-ray: mild elevation of R hemidiaphragm. EKG: sinus tachycardia. Patient was given 500 cc bolus in the ED Admit for observation -cardiac telemetry Blood cultures pending Trend lactic acid -TSH Bladder scan (possible vasovagal cause with strain) -Carotid doppler -Echo 2D Normal saline 100 mL/h -PT and OT (2) Left knee pain Code(s): M25.562 - Pain in left knee Status: Acute Plan: X-ray: no evidence of bony injury -Pain: Tylenol 650 every 4 as needed (3) Left wrist pain Code(s): M25.532 - Pain in left wrist Status: Acute Plan: X-ray no bony abnormalities (4) Bipolar 1 disorder Code(s): F31.9 - Bipolar disorder, unspecified Status: Acute Plan: Continue on home meds -buspirone 10 BID, quetiapine 50 BID, divalproex 250 BID) (5) Asthma Code(s): J45.909 - Unspecified asthma, uncomplicated Status: Acute Plan: Continue on home meds -albuterol PRN and Symbicort BID (6) GERD (gastroesophageal reflux disease) Code(s): K21.9 - Gastro-esophageal reflux disease without esophagitis Status: Acute Plan: Continue on home meds -omeprazole 20 mg (7) Nutrition, metabolism, and development symptoms Code(s): R63.8 - Other symptoms and signs concerning food and fluid intake Status: Acute Plan: Diet: Regular Fluids: 100 normal saline per hour Electrolytes: Monitor and replete DVT prophylaxis: SCDs <Maria Del Rosario Wilson - 08/02/18 15:45> - Attending Attestation THIS CASE WAS DISCUSSED WITH THE RESIDENT PHYSICIAN. I HAVE REVIEWED THE RECORD AND AGREE WITH THE ABOVE NOTE AND PLAN OF CARE WAS DISCUSSED. I HAVE AUTHORIZED THE ORDER FOR PLACEMENT IN OUT-PATIENT OBSERVATION STATUS. Anthony Granger MD <Anthony Granger - 08/03/18 13:54>
--- NOTE | 2018-08-02 17:15 | ECHRPT ---
Indication: Syncope CONCLUSIONS Normal left ventricular size. Wall thickness is normal. The left ventricular systolic function is normal with an estimated ejection fraction in the range of 55-60%. Normal atrial septal thickness. Trace mitral valve regurgitation. Mitral annular calcification is present. There is trace tricuspid valve regurgitation. BP: / HR: Rhythm: MEASUREMENTS (Male / Female) Normal Values Technical Quality:Technically difficult study 2D ECHO LV Diastolic Diameter PLAX 3.8 cm 4.2 - 5.9 / 3.9 - 5.3 cm LV Systolic Diameter PLAX 2.5 cm IVS Diastolic Thickness 0.9 cm 0.6 - 1.0 / 0.6 - 0.9 cm LVPW Diastolic Thickness 0.9 cm 0.6 - 1.0 / 0.6 - 0.9 cm LV Relative Wall Thickness 0.5 RV Internal Dim ED PLAX 2.4 cm LVOT Diameter 2.0 cm Aortic Root Diameter 3.3 cm LA Systolic Diameter LX 2.9 cm 3.0 - 4.0 / 2.7 - 3.8 cm DOPPLER AV Peak Velocity 119.0 cm/s AV Peak Gradient 5.7 mmHg LVOT Peak Velocity 96.3 cm/s LVOT Peak Gradient 3.7 mmHg AV Area Cont Eq pk 2.5 cm Mitral E Point Velocity 61.2 cm/s Mitral A Point Velocity 95.3 cm/s Mitral E to A Ratio 0.6 LV E' Lateral Velocity 8.7 cm/s Mitral E to LV E' Lateral Ratio 7.1 LV E' Septal Velocity 6.4 cm/s Mitral E to LV E' Septal Ratio 9.5 TR Peak Velocity 224.0 cm/s TR Peak Gradient 20.1 mmHg Right Atrial Pressure 10.0 mmHg Pulmonary Artery Systolic Pressu 30.1 mmHg Right Ventricular Systolic Press 30.1 mmHg PV Peak Velocity 57.0 cm/s PV Peak Gradient 1.3 mmHg FINDINGS LEFT VENTRICLE Normal left ventricular size. Wall thickness is normal. The left ventricular systolic function is normal with an estimated ejection fraction in the range of 55-60%. RIGHT VENTRICLE Normal right ventricular size and systolic function. LEFT ATRIUM The left atrial size is normal. RIGHT ATRIUM The right atrial size is normal. ATRIAL SEPTUM Normal atrial septal thickness. AORTA The aortic root and proximal ascending aorta are normal in size on limited imaging. MITRAL VALVE Trace mitral valve regurgitation. Mitral annular calcification is present. AORTIC VALVE Trileaflet aortic valve. No aortic valve stenosis or regurgitation. TRICUSPID VALVE There is trace tricuspid valve regurgitation. PULMONARY VALVE No pulmonary valve regurgitation or stenosis. VESSELS The inferior vena cava is normal in size. PERICARDIUM No pericardial effusion. Herber Baxter MD, FACC, [facility] (Electronically Signed) Final Date:02 August 2018 17:14
--- NOTE | 2018-08-02 17:30 | OTSOAPIP ---
TIME SESSION COMPLETED: TREATMENT TIME: 0 MINS. CHART REVIEWED. ATTEMPTED TO SEE FOR OT EVALUATION, HOWEVER OFF FLOOR. WILL FOLLOW NEXT DAY. Therapist: Emily Alcantara Signature on file
[2018-08-02] MEDS ORDERED: Morphine Sulfate Inj 2 MG/ML Vial IV.PUSH ONE (18:34)
[2018-08-02 19:19] LABS: INR 1.1 Ratio; Prothrombin Time 10.7 sec (9.8-11.6)
[2018-08-02] MEDS: Senna/Docusate Sodium 8.6/50 MG Tablet PO SCH (20:31)
[2018-08-03] MEDS: Sod Chloride 0.9% Inj 1,000 ML IV.CONT SCH ×2 (01:18→12:14)
[2018-08-03 07:39] LABS: Baso % (Auto) 0.6 % (0.0-2.0); Eos # (Auto) 0.2 th/mm3 (0.0-0.4); Eos % (Auto) 4.7 % (0.0-4.0); Hematocrit 33.4 % (35.0-46.0); Hemoglobin 10.8 gm/dL (11.6-15.3); Lymph # (Auto) 1.3 th/mm3 (1.0-4.8); Mean Corpuscular HGB Conc 32.4 % (32.0-36.0); Mean Corpuscular Hemoglobin 24.9 pg (27.0-34.0); Mean Corpuscular Volume 76.8 fL (80.0-100.0); Mean Platelet Volume 9.1 fL (7.0-11.0); Mono # (Auto) 0.7 th/mm3 (0.0-0.9); Mono % (Auto) 15.7 % (0.0-8.0); Neut # (Auto) 2.4 th/mm3 (1.8-7.7); Platelet Count 146 th/mm3 (150-450); Red Blood Count 4.35 mil/mm3 (4.00-5.30); Red Cell Distribution Width 14.9 % (11.6-17.2); White Blood Count 4.7 th/mm3 (4.0-11.0)
[2018-08-03 07:50] LABS: Calcium 7.8 mg/dL (8.5-10.1); Potassium 3.7 meq/L (3.5-5.1)
[2018-08-03] MEDS: Senna/Docusate Sodium 8.6/50 MG Tablet PO SCH ×3 (09:03→20:03)
--- NOTE | 2018-08-03 11:11 | US ---
EXAM DATE: 08/03/2018 11:05 AM EST AGE/SEX: 77 years / Female INDICATIONS: Syncope. CLINICAL DATA: This is the patient's initial encounter. Patient reports that signs and symptoms have been present for 1 day and indicates a pain score of 0/10. MEDICAL/SURGICAL HISTORY: . Bipolar. GERD. . Unknown. COMPARISON: No prior exams available for comparison. VELOCITY PARAMETERS: ICA/CCA Ratio: Right 1.0 , Left 1.0 ICA: Right 88 cm/sec, Left 81 cm/sec CCA: Right 89 cm/sec, Left 82 cm/sec ECA: Right 43 cm/sec, Left 41 cm/sec Vertebral: Right 59 cm/sec antegrade, Left 68 cm/sec antegrade FINDINGS: Right Carotid: No significant plaque is visualized.The waveforms are within normal limits. Left Carotid: No significant plaque is visualized. The waveforms are within normal limits. Other: None. CONCLUSION: Negative carotid ultrasound examination. Electronically signed by: Brayan Blanco MD 08/03/2018 11:10 AM EST
[2018-08-03] MEDS ORDERED: METHYLPREDNISOLONE 16 MG PO ONE (12:00)
--- NOTE | 2018-08-03 12:05 | P.PNFP ---
Subjective Interval history: This morning the patient continues to complain of pain in her left knee. Reviewing the history available indicates that she is living in an assisted living facility and [place]. She was visiting her family for Thanksgiving. Two possible falls prior to arrival in ER. First unwitnessed; patient reported that she fell into the wall and hit her head. LOC uncertain. Second episode occurred when she fell off of the commode in the bathroom (was witnessed with no associated LOC). Extensive w/u in ER with imaging of neck, chest, head, hand , knee and pelvis indicated not acute injury/fracture. The patient reports that she has had arthritis (uncertain of type) for which she uses a pain medication (unknown type - not on current list of medications). She reports that she ambulates in her [facility]EV[facility] unit with a walker. Results - Labs Result diagrams: 08/03/18 06:45 08/03/18 06:45 Abnormal lab results 08/02/18 08/02/18 08/02/18 Range/Units 11:35 11:35 11:35 Hgb (11.6-15.3) gm/dL Hct (35.0-46.0) % MCV 75.3 L (80.0-100.0) fL MCH 24.9 L (27.0-34.0) pg Plt Count 146 L (150-450) th/mm3 Neut % (Auto) 80.6 H (16.0-70.0) % [place] % (Auto) 9.0 H (0.0-8.0) % Eos % (Auto) (0.0-4.0) % Lymph # (Auto) 0.7 L (1.0-4.8) th/mm3 Chloride (98-107) meq/L BUN 27 H (7-18) mg/dL Estimated GFR 59 L (>89) mL/min Lactic Acid 2.7 H (0.4-2.0) mmol/L Calcium (8.5-10.1) mg/dL TSH (0.358-3.740) uIU/mL Urine Occult Blood (Negative) Urine Mucus (Occasional) /lpf 08/02/18 08/02/18 08/02/18 Range/Units 11:35 12:31 14:50 Hgb (11.6-15.3) gm/dL Hct (35.0-46.0) % MCV (80.0-100.0) fL MCH (27.0-34.0) pg Plt Count (150-450) th/mm3 Neut % (Auto) (16.0-70.0) % [place] % (Auto) (0.0-8.0) % Eos % (Auto) (0.0-4.0) % Lymph # (Auto) (1.0-4.8) th/mm3 Chloride (98-107) meq/L BUN (7-18) mg/dL Estimated GFR (>89) mL/min Lactic Acid 2.8 H (0.4-2.0) mmol/L Calcium (8.5-10.1) mg/dL TSH 4.110 H (0.358-3.740) uIU/mL Urine Occult Blood Small H (Negative) Urine Mucus Few H (Occasional) /lpf 08/03/18 08/03/18 Range/Units 06:45 06:45 Hgb 10.8 L (11.6-15.3) gm/dL Hct 33.4 L (35.0-46.0) % MCV 76.8 L (80.0-100.0) fL MCH 24.9 L (27.0-34.0) pg Plt Count 146 L (150-450) th/mm3 Neut % (Auto) (16.0-70.0) % [place] % (Auto) 15.7 H (0.0-8.0) % Eos % (Auto) 4.7 H (0.0-4.0) % Lymph # (Auto) (1.0-4.8) th/mm3 Chloride 111 H (98-107) meq/L BUN 21 H (7-18) mg/dL Estimated GFR 86 L (>89) mL/min Lactic Acid (0.4-2.0) mmol/L Calcium 7.8 L D (8.5-10.1) mg/dL TSH (0.358-3.740) uIU/mL Urine Occult Blood (Negative) Urine Mucus (Occasional) /lpf Short CBC 08/02/18 08/03/18 Range/Units 11:35 06:45 WBC 7.8 4.7 (4.0-11.0) th/mm3 Hgb 12.2 10.8 L (11.6-15.3) gm/dL Hct 36.9 33.4 L (35.0-46.0) % Plt Count 146 L 146 L (150-450) th/mm3 BMP 08/02/18 08/03/18 11:35 06:45 Sodium 142 141 Potassium 4.2 3.7 Chloride 106 111 H Carbon Dioxide 27.7 23.0 BUN 27 H 21 H Creatinine 0.92 0.66 Calcium 8.7 7.8 L D Liver Function 08/02/18 Range/Units 11:35 Total Bilirubin 0.6 (0.2-1.0) mg/dL AST 23 (15-37) U/L ALT 15 (10-53) U/L Alkaline Phosphatase 51 (45-117) U/L Albumin 3.5 (3.4-5.0) g/dL Urine 08/02/18 Range/Units 12:31 Urine Color Straw (Yellw/Straw) Urine Clarity Clear (Clear) Urine pH 8.0 (5.0-8.5) Ur Specific [place] 1.009 (1.002-1.035) Urine Protein Negative (Neg-Trace) mg/dL Urine Glucose (UA) Negative (Negative) mg/dL - Imaging Impressions Cervical Spine CT 08/02/18 11:29 CONCLUSION: Prominent lordotic accentuation. Degenerative changes. No definite acute bony injury. Chest X-Ray 08/02/18 11:29 CONCLUSION: 1. Senescent changes with mild elevation of the right hemidiaphragm. 2. Otherwise, no acute abnormality. Head CT 08/02/18 11:29 CONCLUSION: Negative CT Head non contrast. . Hand X-Ray 08/02/18 11:37 CONCLUSION: No evidence of recent bony injury. Advanced arthropathy of the first carpometacarpal articulation. Knee X-Ray 08/02/18 11:37 CONCLUSION: No evidence of recent bony injury. Pelvis X-Ray 08/02/18 11:37 CONCLUSION: No evidence of acute bony injury. Carotid Doppler Study 08/03/18 00:00 CONCLUSION: Negative carotid ultrasound examination. Physical Exam Vital signs: Vital Signs 08/02/18 15:20 08/02/18 16:54 08/02/18 20:00 Temperature 97.9 F 98.0 F Pulse Rate 103 H 97 H 95 H Respiratory Rate 17 16 18 Blood Pressure 117/68 117/68 118/61 Pulse Oximetry 97 97 96 08/02/18 20:32 08/03/18 00:00 08/03/18 04:00 Temperature 98.0 F 97.9 F Pulse Rate 90 81 Respiratory Rate 18 16 16 Blood Pressure 111/59 L 115/61 Pulse Oximetry 88 L 887 H 08/03/18 08:00 Temperature 98.8 F Pulse Rate 86 Respiratory Rate 16 Blood Pressure 133/64 Pulse Oximetry 93 L Intake & Output 08/02/18 08/03/18 08/03/18 18:59 06:59 18:59 Intake Total 600 / 600 3060 / 3060 Output Total 900 / 900 460 / 460 Balance -300 / -300 2600 / 2600 Weight 90.718 kg Intake: IV 600 / 600 1200 / 1200 NS Inj 1,000 ML @ 100 mls/hr IV 1000 / 1000 .CONT .Q10H CLARA Rx#:[id number] Ofirmev Inj 1,000 mg In 100 ml 100 / 100 200 / 200 @ 400 mls/hr IV.SIG Q6H CLARA Rx# :[id number] NS Inj 500 ML @ 1000 mls/hr IV. 500 / 500 SIG BOLUS CLARA Rx#:[id number] Oral 360 / 360 Other 1500 / 1500 Output: Urine 900 / 900 460 / 460 Other: Other Intake Source Saline Solution # Voids 1 2 Date of Last Bowel Movement 08/01/18 Weight On Admission 90.718 kg Narrative: CONSTITUTIONAL/GEN: normally nourished, in NAD. EYES: conjunctiva normal, PERRLA, EOMI. ENT: Mouth and pharynx normal. NECK: thyroid midline, carotids symmetrical. LUNGS: clear A-P, respiratory effort is normal. CARDIOVASCULAR: RR without murmur or gallop. No significant edema. GI/ABD: soft without masses, without organomegaly. NEURO: No focal deficits. SKIN: color normal, no rashes noted. HEME/LYMPH: no bruising, petechia or significant adenopathy MUSC: back is normal in appearance. Decreased ROM of shoulders. Mild prominence of MP joints of hands. Left knee has a valgus deformity. PSYCH/MENTAL STATUS: Awake and alert. Able to describes her living situation in [place]. Assessment and Plan - Assessment (1) Syncope Code(s): R55 - Syncope and collapse Status: Acute Plan: 08/03/18 Syncope w/u in progress. Echocardiogram negative. Carotid doppler study negative. EKG shows no acute change; L. axis deviation with tachycardia. Imaging studies negative. No significant lab changes. (2) Left knee pain Code(s): M25.562 - Pain in left knee Status: Acute Plan: 08/03/18 Imaging of knee is unremarkable. Physical exam shows a mild valgus deformity suggesting long-standing arthritis. She is still c/o moderate pain but is moving the leg/knee more that on admission. Will start oral corticosteroid for possible inflammatory pain. Will check wSR and RA. (3) Left wrist pain Code(s): M25.532 - Pain in left wrist Status: Acute Plan: X-ray no bony abnormalities (4) Bipolar 1 disorder Code(s): F31.9 - Bipolar disorder, unspecified Status: Acute (5) Asthma Code(s): J45.909 - Unspecified asthma, uncomplicated Status: Acute (6) GERD (gastroesophageal reflux disease) Code(s): K21.9 - Gastro-esophageal reflux disease without esophagitis Status: Acute (7) Nutrition, metabolism, and development symptoms Code(s): R63.8 - Other symptoms and signs concerning food and fluid intake Status: Acute
--- NOTE | 2018-08-03 13:42 | ECG ---
Date Performed: 08/02/2018 Time Performed: 11:51:41 PTAGE: 77 years EKG: SINUS TACHYCARDIA MARKED LEFT AXIS DEVIATION ABNORMAL ECG NO PREVIOUS TRACING DOCTOR: Herber Baxter Interpretating Date/Time 08/03/2018 13:41:04
--- NOTE | 2018-08-03 17:16 | XR ---
EXAM DATE: 08/03/2018 5:14 PM EST AGE/SEX: 77 years / Female INDICATIONS: Shortness of breath. Chest pain. CLINICAL DATA: This is the patient's subsequent encounter. Patient reports that signs and symptoms h ave been present for 2 days and indicates a pain score of 3/10. MEDICAL/SURGICAL HISTORY: . Bipolar. GERD. None. [place] [facility] [place]. . FINDINGS: Diffuse interstitial prominence with mild elevation of the right hemidiaphragm. Mild airspace disease in the lower lobes bilaterally. Cardiomediastinal contours are within normal limits. Bony thorax is intact. CONCLUSION: 1. Senescent changes with mild bibasilar airspace disease, presumably atelectasis. Electronically signed by: Adeel Lundberg MD 08/03/2018 5:14 PM EST
--- NOTE | 2018-08-03 17:21 | P.PNADD ---
Addendum to Inpatient Note Reason for Addendum: Additional Documentation Additional information: Resident team contacted at 16:40 by nursing staff the patient was experiencing left sided chest pain. Resident team responded at the bedside at 16:45 pm. S: 7-year-old female with history of asthma and GERD originally admitted to the ED following fall, now complains of sharp non-radiating left-sided chest pain. She states that it started about 1 month ago and occurs intermittently. She is unsure when the chest pain started today. Denies trauma to the area. Denies nausea, vomiting, sweating episodes, numbness or tingling in jaw or down left arm. She notes that she is mildly short of breath, on 1-2L NC and has noticed moderate ankle swelling. Denies history of UT or CHF. O: GENERAL: in NAD, no resp distress, receiving 1 L nasal cannula. HEENT: NCAT, EOMI, no scleral icterus, no conjunctival injection. Airway patent. NECK: No JVD. CV: RRR, S1 S2. No murmurs. CHEST/PULM: Moderate coarse crackles in lung bases bilaterally. No reproducible tenderness on palpation of chest wall. EXT: 2+ posterior tibialis pulses. 2-3+ non-pitting edema in bilateral ankles up to mid-whitten. NEURO: Awake, alert. Normal muscle tone. Grossly nonfocal. PSYCH: Mood and affect are appropriate. Speech fluent. A/P: ACS vs. CHF vs. asthma exacerbation vs. PE -EKG showed sinus rhythm of 94. No obvious ST elevations. T wave inversions in V1 and V2. Q waves noted in leads II, III, aVF. -Stat troponin pending -Stat portable chest x-ray ordered. Will consider initiating low-dose of Lasix if signs of CHF. -Wells score calculated: 0 -Will order breathing treatment and IS -IV fluids discontinued tamela Pratt
[2018-08-04] MEDS: Senna/Docusate Sodium 8.6/50 MG Tablet PO SCH (08:29)
[2018-08-04 09:11] LABS: Baso % (Auto) 0.3 % (0.0-2.0); Eos % (Auto) 0.5 % (0.0-4.0); Hemoglobin 10.6 gm/dL (11.6-15.3); Lymph # (Auto) 1.4 th/mm3 (1.0-4.8); Lymph % (Auto) 29.3 % (9.0-44.0); Mean Corpuscular Hemoglobin 24.6 pg (27.0-34.0); Mean Corpuscular Volume 74.6 fL (80.0-100.0); Mean Platelet Volume 9.2 fL (7.0-11.0); Mono # (Auto) 0.8 th/mm3 (0.0-0.9); Mono % (Auto) 16.5 % (0.0-8.0); Neut # (Auto) 2.6 th/mm3 (1.8-7.7); Neut % (Auto) 53.4 % (16.0-70.0); Platelet Count 188 th/mm3 (150-450); Red Cell Distribution Width 14.4 % (11.6-17.2); White Blood Count 4.9 th/mm3 (4.0-11.0)
[2018-08-04] MEDS ORDERED: Pantoprazole Sodium 20 MG DR Tablet PO SCH (09:15)
[2018-08-04 09:39] LABS: Anion Gap 8 meq/L (5-15); Blood Urea Nitrogen 21 mg/dL (7-18); Calcium 8.2 mg/dL (8.5-10.1); Carbon Dioxide 26.4 meq/L (21.0-32.0); Chloride 106 meq/L (98-107); Glomerular Filtration Rate Greater Than 89 mL/min (>89); Glucose,Random 84 mg/dL (74-106); Potassium 4.1 meq/L (3.5-5.1); Sodium 140 meq/L (136-145)
[2018-08-04 12:32] VITALS: BP 132/64; PULSE 89; RESP 18; TEMP 98.8; O2SAT 94
--- NOTE | 2018-08-04 13:17 | P.PNFP ---
Subjective Interval history: Patient seen and examined at bedside this morning. Overnight patient was evaluated for complaints of chest pain, workup was negative. Please see addendum note from 08/03/18 for further detail. This morning patient reports that chest pain has resolved. She also denies shortness of breath, nausea, vomiting, fever, chills, abdominal pain. Patient states her pain is well controlled. <Saritha Aaron D - 08/04/18 15:13> Results - Labs Result diagrams: 08/04/18 07:20 08/04/18 07:20 <Anthony Granger R - 08/05/18 11:40> Abnormal lab results 08/03/18 08/04/18 08/04/18 Range/Units 16:30 07:20 07:20 Hgb (11.6-15.3) gm/dL Hct (35.0-46.0) % MCV (80.0-100.0) fL MCH (27.0-34.0) pg [place] % (Auto) (0.0-8.0) % ESR 35 H (0-30) mm/hr BUN 21 H (7-18) mg/dL Calcium 8.2 L (8.5-10.1) mg/dL Troponin I Less than 0.02 L (0.02-0.05) ng/mL 08/04/18 Range/Units 07:20 Hgb 10.6 L (11.6-15.3) gm/dL Hct 32.0 L (35.0-46.0) % MCV 74.6 L (80.0-100.0) fL MCH 24.6 L (27.0-34.0) pg [place] % (Auto) 16.5 H (0.0-8.0) % ESR (0-30) mm/hr BUN (7-18) mg/dL Calcium (8.5-10.1) mg/dL Troponin I (0.02-0.05) ng/mL Short CBC 08/04/18 Range/Units 07:20 WBC 4.9 (4.0-11.0) th/mm3 Hgb 10.6 L (11.6-15.3) gm/dL Hct 32.0 L (35.0-46.0) % Plt Count 188 (150-450) th/mm3 BMP 08/04/18 07:20 Sodium 140 Potassium 4.1 Chloride 106 Carbon Dioxide 26.4 BUN 21 H Creatinine 0.57 Calcium 8.2 L Cardiac Enzymes 08/03/18 Range/Units 16:30 Troponin I Less than 0.02 L (0.02-0.05) ng/mL <Saritha Aaron D - 08/04/18 13:17> - Imaging Impressions Chest X-Ray 08/03/18 16:58 CONCLUSION: 1. Senescent changes with mild bibasilar airspace disease, presumably atelectasis. <Saritha Aaron D - 08/04/18 13:17> Physical Exam Vital signs: Vital Signs 08/04/18 12:00 Temperature 98.8 F Pulse Rate 89 Respiratory Rate 18 Blood Pressure 132/64 Pulse Oximetry 94 L <Anthony Granger R - 08/05/18 11:40> Vital Signs 08/03/18 16:00 08/03/18 18:34 08/03/18 20:00 Temperature 99.7 F H 98.1 F Pulse Rate 96 H 89 110 H Respiratory Rate 14 16 18 Blood Pressure 147/91 H 134/79 Pulse Oximetry 91 L 92 L 08/03/18 20:43 08/04/18 00:00 08/04/18 04:00 Temperature 98.4 F Pulse Rate 87 Respiratory Rate 17 18 Blood Pressure 139/70 Pulse Oximetry 96 92 L 94 L 08/04/18 07:40 08/04/18 12:00 Temperature 98.4 F 98.8 F Pulse Rate 79 89 Respiratory Rate 16 18 Blood Pressure 111/68 132/64 Pulse Oximetry 95 94 L Intake & Output 08/03/18 08/04/18 08/04/18 18:59 06:59 18:59 Intake Total 1300 / 1300 240 / 240 Output Total 420 / 420 Balance 1300 / 1300 -180 / -180 Intake: IV 1300 / 1300 NS Inj 1,000 ML @ 100 mls/hr IV 1000 / 1000 .CONT .Q10H CLARA Rx#:[id number] Ofirmev Inj 1,000 mg In 100 ml 100 / 100 @ 400 mls/hr IV.SIG Q6H CLARA Rx# :[id number] Oral 240 / 240 Output: Urine 420 / 420 Other: Date of Last Bowel Movement 08/01/18 <Saritha Aaron D - 08/04/18 13:17> Narrative: CONSTITUTIONAL/GEN: normally nourished, in NAD. EYES: conjunctiva normal, PERRLA, EOMI. ENT: Mouth and pharynx normal. NECK: thyroid midline, carotids symmetrical. LUNGS: clear A-P, respiratory effort is normal. CARDIOVASCULAR: RR without murmur or gallop. No significant edema. GI/ABD: soft without masses, without organomegaly. NEURO: No focal deficits. SKIN: color normal, no rashes noted. HEME/LYMPH: no bruising, petechia or significant adenopathy MUSC: back is normal in appearance. Decreased ROM of shoulders. Mild prominence of MP joints of hands. Left knee has a valgus deformity, nontender. No tender calves BL, well perfused. PSYCH/MENTAL STATUS: Awake and alert. Able to describes her living situation in [place]. <Saritha Aaron D - 08/04/18 15:13> Assessment and Plan - Assessment (1) Syncope Code(s): R55 - Syncope and collapse Status: Acute (2) Left knee pain Code(s): M25.562 - Pain in left knee Status: Resolved (3) Left wrist pain Code(s): M25.532 - Pain in left wrist Status: Resolved (4) Bipolar 1 disorder Code(s): F31.9 - Bipolar disorder, unspecified Status: Acute (5) Asthma Code(s): J45.909 - Unspecified asthma, uncomplicated Status: Acute (6) GERD (gastroesophageal reflux disease) Code(s): K21.9 - Gastro-esophageal reflux disease without esophagitis Status: Acute (7) Nutrition, metabolism, and development symptoms Code(s): R63.8 - Other symptoms and signs concerning food and fluid intake Status: Acute <Anthony Granger R - 08/05/18 11:40> (1) Syncope Code(s): R55 - Syncope and collapse Status: Acute Plan: Syncope w/u: Echocardiogram negative. Carotid doppler study negative. EKG shows no acute change; L. axis deviation with tachycardia. Imaging studies negative. No significant lab changes. (2) Left knee pain Code(s): M25.562 - Pain in left knee Status: Resolved Plan: Imaging of knee is unremarkable. Physical exam shows a mild valgus deformity suggesting long-standing arthritis. Knee pain has improved since being she received steroid medication. Continue with oral corticosteroid for possible inflammatory pain. ESR 35 and RF factor is negative.. (3) Left wrist pain Code(s): M25.532 - Pain in left wrist Status: Resolved Plan: X-ray no bony abnormalities (4) Bipolar 1 disorder Code(s): F31.9 - Bipolar disorder, unspecified Status: Acute Plan: Continue with home medication (5) Asthma Code(s): J45.909 - Unspecified asthma, uncomplicated Status: Acute Plan: Continue with home medication (6) GERD (gastroesophageal reflux disease) Code(s): K21.9 - Gastro-esophageal reflux disease without esophagitis Status: Acute Plan: Continue with home medication (7) Nutrition, metabolism, and development symptoms Code(s): R63.8 - Other symptoms and signs concerning food and fluid intake Status: Acute Plan: Fluids: Not indicated at this time Electrolytes: Replete as needed Diet: regular DVT prophylaxis SCDs <Saritha Aaron - 08/04/18 15:04> - Attending Attestation This patient was seen and evaluated with the resident physician. I agree with the plan of care as discussed with me and documented in the resident note. Anthony Granger MD <Anthony Granger - 08/05/18 11:40>
--- NOTE | 2018-08-04 13:52 | ECG ---
Date Performed: 08/03/2018 Time Performed: 16:04:02 PTAGE: 77 years EKG: Sinus rhythm INFERIOR MYOCARDIAL INFARCTION ABNORMAL ECG Since the PREVIOUS TRACING , no significant change noted PREVIOUS TRACIN08/02/2018 11.51.41 DOCTOR: Herber Baxter Interpretating Date/Time 08/04/2018 13:51:21
--- NOTE | 2018-08-04 14:09 | P.DCO ---
- Occupational Therapy Order: Evaluate and treat, Improve ADL, Gross motor coordination, Fine motor coordination - Case Management Consult Case Management Consult-Home Health: Yes - Certification I have seen patient Mary Jensen on 08/04/18. My clinical findings support the need for the requested home health care services because: Deconditioned with increased weakness I certify that my clinical findings support that this patient is homebound because: Unsteady gait/balance
--- NOTE | 2018-08-06 17:48 | P.DS ---
Date of admission: 08/02/18 13:49 Primary care physician: UNKNOWN DS: Diagnosis - Discharge Diagnosis (1) Syncope Status: Acute (2) Left knee pain Status: Resolved (3) Left wrist pain Status: Resolved (4) Bipolar 1 disorder Status: Acute (5) Asthma Status: Acute (6) GERD (gastroesophageal reflux disease) Status: Acute (7) Nutrition, metabolism, and development symptoms Status: Acute DS: Medications - Discharge Medications Prescriptions: methylprednisolone [Medrol] 4 mg PO DAILY 14 Days #14 tab DS: Summary - Time Spent with Patient Total time spent providing and/or coordinating discharge services: - Quality: VTE Deep Vein Thrombosis/Pulmonary Embolism Present on Admission: No Results Labs on day of discharge: Preliminary micro results at discharge 08/02/18 11:45 Aerobic Blood Culture - Preliminary Blood - Peripheral No growth in 4 days Anaerobic Blood Culture - Preliminary No growth in 4 days 08/02/18 11:35 Aerobic Blood Culture - Preliminary Blood - Peripheral No growth in 4 days Anaerobic Blood Culture - Preliminary No growth in 4 days - Impressions ITS Impressions Cervical Spine CT 08/02/18 11:29 CONCLUSION: Prominent lordotic accentuation. Degenerative changes. No definite acute bony injury. Head CT 08/02/18 11:29 CONCLUSION: Negative CT Head non contrast. . Hand X-Ray 08/02/18 11:37 CONCLUSION: No evidence of recent bony injury. Advanced arthropathy of the first carpometacarpal articulation. Knee X-Ray 08/02/18 11:37 CONCLUSION: No evidence of recent bony injury. Pelvis X-Ray 08/02/18 11:37 CONCLUSION: No evidence of acute bony injury. Carotid Doppler Study 08/03/18 00:00 CONCLUSION: Negative carotid ultrasound examination. Chest X-Ray 08/03/18 16:58 CONCLUSION: 1. Senescent changes with mild bibasilar airspace disease, presumably atelectasis. Discharge Plan - Discharge Disposition Patient Disposition: ACL[facility]/CARE HOME - Discharge Condition Condition: Stable - Discharge Order Discharge Orders: Discharge Order (Routine); Ordered 08/04/18 Ordered By: Saritha Aaron - Discharge Details Anticipated Discharge Date: 08/02/18 - Physicians Team Primary Care Provider: UNKNOWN, Attending Provider: Anthony Granger
== END 2018-08-04 16:48 ==
LOC: NEPC 10:57 → NEDA 10:57 → NEPFCDU 17:20
PROVIDERS: ADMIT Family Medicine; ATTEND Family Medicine